=== PATIENT | male | born 1940 | race Caucasian/White ===

== ENCOUNTER 2017-12-19 09:01 | Emergency (ER) | payer MEDICARE, BC ==
--- NOTE | 2017-12-19 09:40 | EDM.PDOC ---
ED HPI GENERAL MEDICAL PROBLEM - General Chief Complaint: Back Pain or Injury Stated Complaint: BACK PAIN Time Seen by Provider: 12/19/17 09:15 Source of Information: Reports: Patient, Family History Limitations: Reports: No Limitations - History of Present Illness INITIAL COMMENTS - FREE TEXT/NARRATIVE: Jamaal comes to [facility] ED with low back pain over the past 9 days, worse over the past 3 days. There is reported stiffness in the lower back, L>R, without radiation into the legs. Bending, stooping, and lifting are difficult. He was seen in this weekend and dispensed Mobic po. 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 lower back Pain Score (Numeric/FACES): 10 - Related Data Allergies Allergy/AdvReac Type Severity Reaction Status Date / Time No Known Allergies Allergy Verified 12/19/17 09:21 Home Meds: Home Meds Bisoprolol/Hydrochlorothiazide [Bisoprolol/HCTZ 5-6.25 MG] 2 tab PO DAILY [History] Calcium Carbonate/Vitamin D3 [Calcium 500 + Vit D Caplet] 2 tab PO DAILY [History] Cyclobenzaprine [Flexeril] 10 mg PO TID PRN #20 tab 12/19/17 [Rx] Lisinopril [Lisinopril] 40 mg PO DAILY 12/19/17 [History] Meloxicam [Meloxicam] 15 mg PO DAILY PRN 12/19/17 [History] Past Medical History Cardiovascular History: Reports: High Cholesterol, Hypertension ED ROS GENERAL - Review of Systems Review Of Systems: See Below Constitutional: Reports: No Symptoms HEENT: Reports: No Symptoms Respiratory: Reports: No Symptoms Cardiovascular: Reports: No Symptoms Endocrine: Reports: No Symptoms GI/Abdominal: Reports: No Symptoms : Reports: No Symptoms Musculoskeletal: Reports: Back Pain, Muscle Stiffness (lower back) Skin: Reports: No Symptoms Neurological: Reports: No Symptoms Psychiatric: Reports: No Symptoms Hematologic/Lymphatic: Reports: No Symptoms Immunologic: Reports: No Symptoms ED EXAM,LOWER BACK PAIN/INJURY - Physical Exam Exam: See Below Exam Limited By: No Limitations General Appearance: Alert, WD/WN, Mild Distress Head: Atraumatic, Normocephalic Neck: Normal Inspection, Supple, Non-Tender, Full Range of Motion Respiratory/Chest: No Respiratory Distress, Lungs Clear Cardiovascular: Normal Peripheral Pulses, Regular Rate, Rhythm, No Murmur GI/Abdominal: Normal Bowel Sounds, Soft, Non-Tender, No Organomegaly, No Distention, No Mass (Male) Exam: No Hernia Back Exam: Decreased Range of Motion, Muscle Spasm, Paraspinal Tenderness (left) Extremities: Normal Inspection, Normal Range of Motion, Non-Tender, No Pedal Edema Neurological: Alert, Normal Mood/Affect, Normal Dorsiflexion, CN II-XII Intact, Normal Plantar Flexion, No Motor/Sensory Deficits, Oriented x 3 Psychiatric: Normal Affect, Normal Mood Skin Exam: Warm, Dry, Intact, Normal Color, No Rash Lymphatic: No Adenopathy Course - Vital Signs Text/Narrative:: I reviewed x rays of LS spine,noting degenerative disc disease at multiple levels, GR I spondylolithesis, and DJD changes. L knee x rays note extensive patellar degneration with medial compartment narrowing. Last Recorded V/S: Last Vital Signs Temp 36.5 C 12/19/17 09:01 Pulse 67 12/19/17 09:01 Resp 16 12/19/17 09:01 BP 170/82 H 12/19/17 09:01 Pulse Ox 97 12/19/17 09:01 - Orders/Labs/Meds Orders: Active Orders 24 hr Category Date Time Status Consult to Physical Therapy [PT Evaluation and Cons 12/19/17 10:27 Ordered Treatment] [CONS] Routine Knee 3V Lt [CR] Stat Exams 12/19/17 09:35 Taken Lumbar Spine Min 4V [CR] Stat Exams 12/19/17 09:35 Taken Departure - Departure Time of Disposition: 10:32 Disposition: Home, Self-Care 01 Condition: Fair Clinical Impression: Degenerative disc disease, lumbar Patellar pain Qualifiers: Laterality: left Qualified Code(s): M25.562 - Pain in left knee - Discharge Information Referrals: Ozzie Momin MD [Primary Care Provider] - Forms: ED Department Discharge - Problem List & Annotations (1) Degenerative disc disease, lumbar SNOMED Code(s): 10836598 Code(s): M51.36 - OTHER INTERVERTEBRAL DISC DEGENERATION, LUMBAR REGION Status: Acute Current Visit: Yes Annotation/Comment:: Extensive degenerative lumbar disc disease with DJD, managed with Mobic 15 mg qd, added Flexeril 5 mg tid prn, and arranged for PT consult for tomorrow. Heat, rest, and med compliance advised. (2) Patellar pain SNOMED Code(s): 616422245 Code(s): M25.569 - PAIN IN UNSPECIFIED KNEE Status: Acute Current Visit: Yes Annotation/Comment:: Extensive patellar DJD, managed with NSAIDs. Qualifiers: Laterality: left Qualified Code(s): M25.562 - Pain in left knee - Problem List Review Problem List Initiated/Reviewed/Updated: Yes - My Orders Last 24 Hours: My Active Orders 12/19/17 09:35 Knee 3V Lt [CR] Stat Lumbar Spine Min 4V [CR] Stat 12/19/17 10:27 Consult to Physical Therapy [PT Evaluation and Treatment] [CONS] Routine - Assessment/Plan Last 24 Hours: My Active Orders 12/19/17 09:35 Knee 3V Lt [CR] Stat Lumbar Spine Min 4V [CR] Stat 12/19/17 10:27 Consult to Physical Therapy [PT Evaluation and Treatment] [CONS] Routine Plan: Follow up PT evaluation tomorrow and PCP if needed.
--- NOTE | 2017-12-19 11:47 | CR ---
INDICATION: Pain in lower back. LUMBOSACRAL SPINE: Five views of the lumbosacral spine revealed evidence of degenerative disk disease at all lumbosacral levels, including L1-2, L2-3, L3-4 , L4-5, and L5-S1. Anterolisthesis grade 1 is noted at L4-5 and L5-S1 with vacuum disk phenomena at L5-S1. Hypertrophic spurring is noted anteriorly at L1 -2, bridging the disk space with milder hypertrophic changes anteriorly at the L2-3 and L3-4 levels. Sclerosis and narrowing of the L4-5 and L5-S1 apophyseal joints is noted. A mild dextroconcave rotoscoliosis of the lower middle lumbar spine is also seen. There is sacralization of L5 on the left. Mild degenerative changes are noted at the sacroiliac joints. Bilateral THAs are noted. IMPRESSION: Degenerative changes, disk disease, scoliosis as noted above. Report was given in person to Dr. Dietrich, 12/19/2017. DINA
--- NOTE | 2017-12-19 11:49 | CR ---
INDICATION: Left knee pain. LEFT KNEE: Three views of the left knee were obtained and revealed moderate to moderately severe hypertrophic degenerative changes at the patellofemoral joint with narrowing of the patellofemoral joint space, especially laterally. Hypertrophic changes are also noted at the intercondylar notch and spines and medially and laterally off the tibia. Femorotibial joint space may be maintained. An upright view was not obtained. Bone density appeared to be normal. No other bone or joint abnormality was seen. Calcifications are noted in the distal deep femoral artery. IMPRESSION: 1. Osteoarthritis fairly severe at the patellofemoral joint with subchondral cystic changes, narrowing of the joint space, sclerosis, and hypertrophic change. 2. Relatively mild degenerative changes at the tibia, including intercondylar spines, laterally and medially off the tibia, and at the intercondylar notch also of the femur. MTDD
== END 2017-12-19 10:45 | disposition home or self-care (01) ==
LOC: FB.ED 09:01
DX: M51.36 Other intervertebral disc degeneration, lumbar region (principal); M25.562 Pain in left knee; I10 Essential (primary) hypertension; Z79.899 Other long term (current) drug therapy
CPT/HCPCS: 72110; 73562-LT; 99283